=== PATIENT | male | born 1955 | race Two or more races ===

== ENCOUNTER 2022-05-15 19:17 | Inpatient (IN) | payer MEDICAID, OTHER ==
[~2022-05-15] VITALS: Ht 152.4 cm; Wt 83.0 kg
--- NOTE | 2022-05-15 19:35 | NUR ---
PRESENTED TO THE ER FOR C/O L SIDED CP. -SOB, -N/V/ PLACED IN BED 15 ER ON MONITOR, VSS. AWAITING FOR 'S JOCY
[2022-05-15 20:25] LABS: BASOPHILS # (AUTO) 0.1 K/uL (0.0-0.2); BASOPHILS % (AUTO) 0.7 % (0.0-2.0); EOSINOPHILS % (AUTO) 7.9 % (0.0-6.0); HEMATOCRIT 43 % (39-51); HEMOGLOBIN 14.4 g/dL (13.5-17.5); LYMPHOCYTES # (AUTO) 2.6 K/uL (0.8-4.8); LYMPHOCYTES % (AUTO) 25.3 % (20.0-44.0); MEAN CORPUSCULAR HGB CONC 34 g/dl (31.0-36.0); MEAN CORPUSCULAR VOLUME 92 fL (80-96); MONOCYTES # (AUTO) 0.8 K/uL (0.1-1.30); MONOCYTES % (AUTO) 7.4 % (2.0-12.0); NEUTROPHILS # (AUTO) 6.1 K/uL (1.8-8.9); NEUTROPHILS % (AUTO) 58.7 % (43.0-81.0); PLATELET COUNT (AUTO) 266 K/uL (150-450); RED BLOOD CELL COUNT(AUTO) 4.66 MIL/uL (4.5-6.0); WHITE BLOOD COUNT (AUTO) 10.4 K/uL (4.3-11.0)
--- NOTE | 2022-05-15 20:25 | NUR ---
COVID SWAB DONE
[2022-05-15 20:37] LABS: CALCIUM, SERUM 8.9 mg/dL (8.5-10.1); CARBON DIOXIDE 30 mmol/L (21-32); CHLORIDE 102 mmol/L (98-107); CREATININE 0.8 mg/dL (0.6-1.3); GLUCOSE 100 mg/dL (74-106); POTASSIUM 3.7 mmol/L (3.5-5.1); SODIUM SERUM 138 mmol/L (136-145); UREA NITROGEN, BLOOD 18 mg/dL (7-18)
[2022-05-15] MEDS ORDERED: ASPIRIN 81 MG TAB.CHEW ONE (22:56)
[2022-05-15] MEDS ORDERED: ASPIRIN 81 MG TAB.CHEW PO ONE (23:00)
[2022-05-15] MEDS ORDERED: ONDANSETRON HCL/PF 4 MG/2 ML VIAL IVP PRN (23:30)
[2022-05-15] MEDS ORDERED: MAGNESIUM HYDROXIDE 30 ML UDC PO PRN (23:30)
[2022-05-15] MEDS ORDERED: NITROGLYCERIN 0.4 MG/TAB BOTTLE SL PRN (23:30)
--- NOTE | 2022-05-16 05:06 | NUR ---
PATIENT AWAKE AND LAERT. AMBULATORY TO THE BATHROOM.
[2022-05-16 06:24] LABS: BASOPHILS % (AUTO) 0.5 % (0.0-2.0); EOSINOPHILS % (AUTO) 9.3 % (0.0-6.0); HEMATOCRIT 42 % (39-51); HEMOGLOBIN 14.5 g/dL (13.5-17.5); LYMPHOCYTES # (AUTO) 2.5 K/uL (0.8-4.8); LYMPHOCYTES % (AUTO) 28.5 % (20.0-44.0); MEAN CORPUSCULAR HGB CONC 34 g/dl (31.0-36.0); MEAN CORPUSCULAR VOLUME 91 fL (80-96); MONOCYTES # (AUTO) 0.7 K/uL (0.1-1.30); MONOCYTES % (AUTO) 7.7 % (2.0-12.0); NEUTROPHILS # (AUTO) 4.8 K/uL (1.8-8.9); PLATELET COUNT (AUTO) 252 K/uL (150-450); RED BLOOD CELL COUNT(AUTO) 4.62 MIL/uL (4.5-6.0); WHITE BLOOD COUNT (AUTO) 8.8 K/uL (4.3-11.0)
[2022-05-16 06:41] LABS: CREATININE 0.6 mg/dL (0.6-1.3); MAGNESIUM 2.4 mg/dL (1.8-2.4); PHOSPHORUS 4.2 mg/dL (2.5-4.9); POTASSIUM 3.5 mmol/L (3.5-5.1)
[2022-05-16] MEDS ORDERED: MORPHINE SULFATE INJ 2 MG/ML DISP.SYRIN ONE (07:17)
[2022-05-16] MEDS: MORPHINE SULFATE INJ 2 MG/ML DISP.SYRIN IV PRN ×2 (07:22→18:07)
[2022-05-16] MEDS ORDERED: ASPIRIN 81 MG TAB.CHEW ONE (07:55)
[2022-05-16] MEDS ORDERED: AMLO-212 PO (07:58)
[2022-05-16] MEDS ORDERED: ASPI-1169 PO (07:58)
[2022-05-16] MEDS ORDERED: FURO20TA4 PO (07:58)
[2022-05-16] MEDS ORDERED: ATOR40TA PO (07:58)
[2022-05-16] MEDS ORDERED: FUROSEMIDE 20 MG TABLET ONE (08:51)
[2022-05-16] MEDS ORDERED: AMLODIPINE BESYLATE 10 MG TABLET ONE (08:51)
[2022-05-16] MEDS ORDERED: AMLODIPINE BESYLATE 5 MG TABLET ONE (08:52)
--- NOTE | 2022-05-16 08:56 | NUR ---
REPORT GIVEN TO KEYANNA FOR LEVAR
[2022-05-16] MEDS ORDERED: ASPIRIN 81 MG TAB.CHEW PO SCH (09:00)
[2022-05-16] MEDS: AMLODIPINE BESYLATE 5 MG TABLET PO SCH (09:05)
[2022-05-16] MEDS: FUROSEMIDE 20 MG TABLET PO SCH (09:05)
[2022-05-16] MEDS: ASPIRIN 81 MG TAB.CHEW PO SCH (09:05)
--- NOTE | 2022-05-16 09:06 | NUR ---
AM MEDS AND BREAKFAST TRAY PROVIDED TO PT, PAPO WELL. PT ALERT AND VERBALLY RESPONSIVE, NOT IN ACUTE DISTRESS.
--- NOTE | 2022-05-16 09:22 | NUR ---
PT TRANSFERRED TO [facility] VIA GURJAY. WARM HANDOFF GIVEN TO AJ COLLIER.
--- NOTE | 2022-05-16 10:15 | NUR ---
ORACLE REPORTS DEVELOPER NOTE RECEIVED PATIENT FROM ER. PATIENT TRANSPORTED VIA GURNEY ACCOMPANIED BY 2 NURSES. PATIENT TRANSFERRED TO BED AND COMFORT MEASURES PROVIDED. PATIENT IS ALERT AND ORIENTED X3-4. WITH OXYGEN AT 3LPM VIA NASAL CANULA, WITH EQUAL AND UNLABORED BREATHING. WITH OXYGEN SATURATION AT 97%. WITH IV ACCESS ON THE LEFT HAND G 18, ON SALINE LOCK, PATENT AND INTACT. NO APPARENT WEAKNESS. WITH STEADY GAIT. PATIENT ON TELE MONITOR READING SINUS RHYTHM. MAINTAINED ON HIGH BACK REST. NO PAIN OR DISCOMFORT REPORTED OR NOTED AT THIS TIME. CALL LIGHT WITHIN REACH. BED IN LOWEST LOCKED POSITION. BED ALARM ON AND SIDERAILS RAISED FOR SAFETY. IN STABLE CONDITION. SEEN BY HOSPITALIST ELIANA AT ER.
[2022-05-16 12:00] VITALS: BP 114/77
[2022-05-16] MEDS ORDERED: IV NS 0.9% 250 ML IV ONE ×2 (13:40→14:38)
[2022-05-16] MEDS ORDERED: IOHEXOL-350 100 ML VIAL IV ONE ×2 (13:40→14:38)
[2022-05-16] MEDS ORDERED: METOPROLOL TARTRATE INJ 5 MG/5 ML AMPUL ONE (14:05)
[2022-05-16] MEDS: METOPROLOL TARTRATE INJ 5 MG/5 ML AMPUL IVP PRN ×4 (14:06→14:21)
--- NOTE | 2022-05-16 14:16 | NUR ---
PRIMARY CLASS TEACHER NOTE PATIENT APPARENTLY, PLACED HIS UPPER PARTIAL TEETH IN HIS LUNCH TRAY BY ACCIDENT. THE NURSE COLLECTED THE TRAY AND WAS SENT TO THE KITCHEN. BY THE TIME THE PATIENT NOTIFIED THE NURSE, THE KITCHEN HAD GOTTEN RID OF THE TRASH. THEY TRIED TO LOOK AT THE TRASH BUT THEY CANNOT FIND THE DENTURES ANYMORE. THE NURSE NOTIFIED ME, THE CHARGE NURSE AND THE LIQUOR GALLERY OPERATOR. ENDORSED ACCORDINGLY.
[2022-05-16] MEDS ORDERED: NITROGLYCERIN 0.4 MG/TAB BOTTLE SL PRN (14:30)
--- NOTE | 2022-05-16 15:35 | NUR ---
RISK ASSESSOR NOTE PATIENT BACK FROM [facility]. IN STABLE CONDITION. PATIENT SAID THAT ITS OKAY THAT HIS DENTURES CANNOT BE FOUND. HE SAID IT IS DUE FOR REPLACEMENT ANYWAY.
[2022-05-16 16:00] VITALS: BP 107/68
--- NOTE | 2022-05-16 18:51 | NUR ---
RADIATION THERAPIST CLOSING NOTE PATIENT IS ALERT AND ORIENTED X3-4. WITH OXYGEN AT 3LPM VIA NASAL CANULA, WITH EQUAL AND UNLABORED BREATHING. WITH OXYGEN SATURATION AT 98%. WITH IV ACCESS ON THE LEFT HAND G 18, ON SALINE LOCK, PATENT AND INTACT. NO APPARENT WEAKNESS. WITH STEADY GAIT. PATIENT ON TELE MONITOR READING SINUS RHYTHM 78 WITH OCCASIONAL SB 54BPM. MAINTAINED ON HIGH BACK REST. NO PAIN OR DISCOMFORT REPORTED OR NOTED AT THIS TIME. CALL LIGHT WITHIN REACH. BED IN LOWEST LOCKED POSITION. BED ALARM ON AND SIDERAILS RAISED FOR SAFETY. IN STABLE CONDITION. NO COMPLAINT OF DISCOMFOR OR PAIN AT THIS TIME. ENDORSED TO NEXT SHIFT FOR CONTINUITY OF CARE.
[2022-05-16 20:00] VITALS: BP 114/67
--- NOTE | 2022-05-16 20:09 | NUR ---
RN OPENING NOTES RECEIVED PT IN BED, AWAKE, WATCHING TV. AOx4. ON NC 3LPM AND TOLERATING WELL. NO SOB NOTED. NO S/SX OF RESPIRATORY DISTRESS NOTED. NO COMPLAINTS OF CHEST PAIN AT THIS TIME. TELE MONITOR DETECTS SINUS RHYTHM. IV ACCESS IN L HAND #18G. IV IS INTACT, PATENT, AND FLUSHING WELL. SAFETY PRECAUTIONS IN PLACE: BED IN LOWEST, LOCKED POSITION, SIDERAILS UPx2, AND BRAKES ON. TABLE AND CALL LIGHT WITHIN REACH. ALL NEEDS MET AT THIS TIME.
[2022-05-16] MEDS ORDERED: ATORVASTATIN 40 MG TABLET PO SCH (22:00)
[2022-05-16] MEDS ORDERED: ZOLPIDEM TARTRATE 10 MG TABLET PO PRN (22:00)
--- NOTE | 2022-05-16 22:07 | NUR ---
RN NOTES ADMINISTERED AMBIEN FOR SLEEP PER MD ORDER.
[2022-05-17] VITALS: BP 126/75
[2022-05-17 04:00] VITALS: BP 121/85
--- NOTE | 2022-05-17 07:30 | NUR ---
RN MS NOTES PT IN BED, ASLEEP, RESPIRATIONS NORMAL, CALL LIGHT WITHIN REACH, NO COMPLAINT OF PAIN OR ANY DISCOMFORT, KEPT COMFORTABLE IN BED.
--- NOTE | 2022-05-17 07:39 | NUR ---
RN CLOSING NOTES PT IN BED, ASLEEP, AWAKENS TO VERBAL STIMULI. AOx4. ON NC 3LPM AND TOLERATING WELL. NO SOB NOTED. NO S/SX OF RESPIRATORY DISTRESS NOTED. NO COMPLAINTS OF CHEST PAIN AT THIS TIME. TELE MONITOR DETECTS SINUS RHYTHM. IV ACCESS IN L HAND #18G. IV IS INTACT, PATENT, AND FLUSHING WELL. ALL ORDERS CARRIED OUT. ALL NEEDS MET. PT KEPT CLEAN AND DRY. SAFETY PRECAUTIONS IN PLACE: BED IN LOWEST, LOCKED POSITION, SIDERAILS UPx2, AND BRAKES ON. TABLE AND CALL LIGHT WITHIN REACH. WILL ENDORSE TO ONCOMING SHIFT FOR LEVAR.
[2022-05-17] MEDS: ACETAMINOPHEN 325 MG TABLET PO PRN ×2 (08:27→14:20)
[2022-05-17 08:28] VITALS: BP 140/77
[2022-05-17] MEDS: FUROSEMIDE 20 MG TABLET PO SCH (08:28)
[2022-05-17] MEDS: ASPIRIN 81 MG TAB.CHEW PO SCH (08:28)
[2022-05-17] MEDS: AMLODIPINE BESYLATE 5 MG TABLET PO SCH (08:28)
--- NOTE | 2022-05-17 15:45 | NUR ---
SS Consult: SS consult requested for homelessness in the future. The pt. is a 67 -year-old [place] male pt. admitted for chest pain per EMR. Upon SS consult, the pt. is Alert & Oriented x 4 and makes good eye contact. The pt. appears well-groomed with euthymic mood & affect. Pt.s speech is WNL. Pt. remained calm & cooperative throughout interview. Pt. denies SI/HI and denies hallucinations. Pt. denies any previous diagnosis of mental illness. SW explored pt.s living situation. Patient states he currently resides at home[[address] [facility] [address]; [phone] CELL] where he rents a room. Per pt. he will be homeless by the end of the month as the family who is renting that home is to vacate by the end of the month as well. SW provided homeless resources: shelters, storage, rehousing services, food atkinson, etc. and pt. accepted them. SW explored pt.s drug & ETOH use. Pt. denies alcohol & drug use. Pt. stated he ambulates with a front wheel walker and is independent with all his ADLs. SW explored pt.s support system. Pt. states he has a nephew that lives in [place]. Plan: Per pt. he will be homeless by the end of the month as the family who is renting that home is to vacate by the end of the month as well. SW provided homeless resources: shelters, storage, rehousing services, food [place], etc. and pt. accepted them. Pt. states he will pay for a taxi to take him home. SW provided pt. with the following homeless resources: Year-round shelters: [facility] [place] [address] [place] [address] ; [facility] [place] [address] [place] [address]; [facility] [address] [facility] [address] Hygiene: [facility]: [address] [place] ; [facility] [address] [facility] ; [facility] [address] [place] . Food Resources: [place] [facility] at [facility]- [address] [place]; Meet Each Need with Dignity ([facility]) [address] [facility]; [facility] [address] [facility]; [facility] [address] [facility] [place] Mental Health resources provided: [facility] [address] [place], [place] [address] ; [facility] [address] [facility] [address], [place], [place] [id number] ; [facility] [address] [place], [place] [id number] ; [facility] [address] [place], [place] [address] Healthcare Clinics: [facility] [address] [facility] [facility], [address] [place]. [place] ; [facility] [address] [facility] [address] [place] [address]; [facility] [place] [address] [facility] [place] [address] [phone]) [phone] Counseling--Outpatient [facility] [place] [facility] [address], [address] [place], [place] [address] (Specializes in in-depth psychotherapy for emotional distress: anxiety, depression, interpersonal conflicts, life transitions, childhood abuse) [facility] [address] [place], [place] [phone] (Assist with solving problem marital difficulties, separation & divorce, aging parents, & grief, chronic & terminal illness) [facility] [address] [place] [address] (Deal with loss & grief, anxiety, marital difficulties) Homebound/Mental Health Services [address] [facility], [address] [place], [place] [address] (Provide in-home mental services to people who are incapable of leaving their homes) [facility] Elderly Senior Service/Resource Center [address] [place] [address] [facility] [address] [place] [address] PSYCHIATRIC OUTPATIENT SERVICES [facility] Partial Hospitalization and Intensive Outpatient Program (Managed Care and [place] Only)[address] [facility] [phone] [facility] Partial Hospitalization and Outpatient [address] [place], [place] [phone] [facility] Len[place] [address] [place], [place] [phone] [facility] Partial Hospitalization and Outpatient Jrhnuyc8[address]11 eliBaltimore VA Medical CenterrobertROSSTON, [phone] Substance Abuse resources provided included: [facility] Substance Abuse Self-Helpline (SAS) ; CRI -HELP [address] [facility]. [place] [address] ; [facility] [address] [facility] [address] ; [facility] [address] [facility] [address] ; [facility] [address] [facility] [phone] ; [facility] Treatment [facility] [address] [facility] [id number] ; [facility] [address] [facility] [phone] ; [facility] Substance Abuse Helpline(SAS)-[facility] ; [facility] ; [facility] [place] [place]; [facility] [place]; [facility] [place]; [facility] [place]; [facility]; [facility] [place]; [facility]; [facility], [facility]. [facility] [place]; Alcoholics Anonymous -SFV; Ct-Qatx-Ijfgznl ; Marijuana Anonymous -SFV; Narcotics Anonymous www.na.org;
--- NOTE | 2022-05-17 17:01 | NUR ---
RN MS NOTES PT AWAKE, ALERT AND ORIENTED, DENIES PAIN, NOT IN DISTRESS, CALL LIGHT WITHIN REACH, SEEN BY DR. CONDE, DISCHARGE ORDER GIVEN, DISCHARGE AND MEDICATION INSTRUCTIONS GIVEN TO PT, VERBALIZED UNDERSTANDING, PT TO FOLLOW UP WITH [facility], BELONGINGS ACCOUNTED FOR, PT'S OWN MEDICATION PICKED UP FROM PHARMACY AND GIVEN TO PT, TELE MONITOR BOX RECEIVED BY Needly, ASSISTED TO HOSPITAL LOBBY, PICKED UP BY FRIEND, LEFT VIA PRIVATE CAR IN STABLE CONDITION.
== END 2022-05-17 16:30 | disposition home or self-care (01) | DRG 200 ==
LOC: ER 19:23 → TRANSITION 05-16 02:24 → TELE 05-16 09:30 → MED 05-17 13:39
PROVIDERS: ADMIT Nurse Practitioner Acute Care; ATTEND Internal Medicine
DX: Q26.3 Partial anomalous pulmonary venous connection (principal); E11.9 Type 2 diabetes mellitus without complications; I25.10 Atherosclerotic heart disease of native coronary artery without angina pectoris; E66.9 Obesity, unspecified; E78.5 Hyperlipidemia, unspecified; I10 Essential (primary) hypertension; Z20.822 Contact with and (suspected) exposure to COVID-19; Z95.5 Presence of coronary angioplasty implant and graft; Z79.82 Long term (current) use of aspirin; Z79.899 Other long term (current) drug therapy; Z87.09 Personal history of other diseases of the respiratory system; Z68.31 Body mass index [BMI] 31.0-31.9, adult; F10.11 Alcohol abuse, in remission; Q21.10 Atrial septal defect, unspecified
CPT/HCPCS: 36415; 71045-TC; 75574; 80048-TC; 80061-TC; 83735-TC; 83880; 84100-TC; 84484-TC; 85025-TC; 87081-TC; 93307-TC; 94799-TC; C9803; G0378; J2270; J3490; J7050; Q9967